=== PATIENT | male | born 1955 | race Caucasian/White ===

== ENCOUNTER 2023-11-25 09:36 | Observation (INO) ==
--- NOTE | 2023-10-01 14:50 | PAT Medication Instructions ---
Medication Instructions Date of Service October 01, 2023 Home Medications aspirin 81 mg capsule 81 mg PO Q2D krill oil 500 mg capsule 500 mg PO QAM multivitamin 1 tab PO QAM MEDICATION INSTRUCTIONS: ASK your prescriber and surgeon aspirin 81 mg capsule 81 mg PO Q2D STOP taking 2 weeks before surgery krill oil 500 mg capsule 500 mg PO QAM DO NOT take the morning of surgery multivitamin 1 tab PO QAM Other Notes Remember: NOTHING TO EAT OR DRINK AFTER MIDNIGHT If you have any questions please call us at [phone] or [phone] or [phone] or [phone]
--- NOTE | 2023-10-15 14:36 | Anesthesiology Consultation ---
Date of Service October 15, 2023 Assessment & Plan (1) Encounter for pre-operative examination: - awaiting surgeon ordered medical clearance-Dr. Jesús Yun. - Outpatient joint pathway: Per surgeon and patient, plan for outpatient joint program. Upon review of chart- patient is an acceptable candidate for Same Day Joint Program from anesthesia perspective pending perioperative course. Pending patient is motivated, has good support and surgeon's office completes Same Day Joint Program preop requirements- patient may proceed with outpatient TKA. Chart Review Chart Review: Pending: Refer to Additional Notes / Consult section and Patient seen in Pre Admission Testing Teaching & Discussion Pre-Anesthesia Teaching/Discussion Notes: Instructed NPO after midnight before surgery, except medications with 15 cc of water. Medication instructions provided according to the PAT guidelines. History Surgery Operation Date: 11/25/23 12:40 Proposed Procedures p OP: Left Total Knee Replacement - Ponce Vital MD Height/Weight Height: 6 ft 1 in Weight: 88.8 kg Allergies Allergy/AdvReac Type Severity Reaction Status Date / Time No Known Allergies Allergy Verified 10/01/23 10:29 Medications Home Medications Medication Instructions Recorded Confirmed Last Taken aspirin 81 mg capsule 81 mg PO Q2D 10/01/23 10/01/23 Unknown krill oil 500 mg capsule 500 mg PO QAM 10/01/23 10/01/23 Unknown multivitamin 1 tab PO QAM 10/01/23 10/01/23 Unknown Past Medical History Medical History (Updated 10/15/23 @ 14:32 by Brook Nina PA-C) Elevated PSA monitoring with urology - no biopsy has been done. Hx of colonic polyps Hx of renal calculi (2001) Osteoarthritis Patient denies h/o stroke, seizures, heart attack, heart failure, DM, HTN, blood clots/DVTs or blood transfusions. Exercise / Class Metabolic Activity II 4-5 Yardwork/Stairs/Walk up hill (denies chest discomfort or shortness of breath with one flight of stairs) Past Family History Family History Other No family history of adverse response to anesthesia Past Surgical History Surgical History (Updated 10/15/23 @ 14:33 by Brook Nina PA-C) History of arthroplasty of right knee (~2017) History of colonoscopy History of cystoscopy (2021) with stone basketing History of tooth extraction x1 tooth Past Anesthesia History No Hx of Anesthesia Complications and No Family Hx of Anesthesia Complications History of PONV No Hx of PONV and No Hx of Motion Sickness Social History Smoking Status: Never smoker Do You Dip or Chew Tobacco: No Hx Alcohol Use: Yes alcohol intake frequency: holidays/special occasions only Alcohol Intake Frequency Comment: "very rarely" Hx Substance Use: No substance use type: does not use Review of Systems Patient denies chest pain, shortness of breath, dyspnea on exertion, snoring, witnessed apneas, reflux, fever, chills, cough, wheezing, or palpitations. Physical Exam Vital Signs Vitals BP 134/75 P 56 TEMP 97.9 SP02 96% on RA RESP 17 Physical Patient resting comfortably in chair in no acute distress, alert and oriented, responding appropriately throughout visit Full cervical extension range of motion without pain TMD 3.5 finger breadths Mallampati Score 2 Dentition: intact, denies chipped or loose teeth, caps/crowns, implants or bridges Lungs: normal respiratory effort. Good air movement, clear throughout to au scultation, no adventitious breath sounds Cardiac: regular rate and rhythm, no murmurs noted Carotid arteries: negative bruit bilat Lab Results Anesthesia Preop Results Results Anesthesia Widget: WBC 5.66 K/ul (4.8-10.8) 10/15/23 Hgb 14.4 g/dl (14.0-18.0) 10/15/23 Hct 43.0 % (42.0-52.0) 10/15/23 Plt 217 K/uL (130-400) 10/15/23 Na 139 mmol/L (136-145) 10/15/23 K 4.7 mmol/L (3.5-5.1) 10/15/23 Cl 104 mmol/L (98-107) 10/15/23 CO2 32 mmol/L (21-32) 10/15/23 BUN 20 mg/dl (6-23) 10/15/23 Creat 1.04 mg/dl (0.6-1.4) 10/15/23 Glucose Level 89 mg/dl (70-99(Fasting)) 10/15/23 PT 10.3 Seconds (9.0-12.0) 10/15/23 PTT 28 Seconds (21-31) 10/15/23 INR 0.9 (0.9-1.1) 10/15/23 Urine Color Yellow 10/15/23 Urine Appearance Clear (Clear) 10/15/23 Urine pH 5.5 (4.5-7.5) 10/15/23 Urine Specific [place] 1.029 (1.000-1.030) 10/15/23 Urine Protein Negative (Negative) 10/15/23 Urine Glucose (UA) Negative (Negative) 10/15/23 Urine Ketones Negative (Negative) 10/15/23 Urine Blood Negative (Negative) 10/15/23 Urine Nitrite Negative (Negative) 10/15/23 Urine Bilirubin Negative (Negative) 10/15/23 Urine Urobilinogen Negative (Negative) 10/15/23 Urine Leukocyte Esterase Negative (Negative) 10/15/23 Blood Type O Negative 10/15/23 Antibody Screen NEGATIVE 10/15/23 Testing Electrocardiogram Date: 10/15/23 Sinus bradycardia, rate 59 bpm
--- NOTE | 2023-11-22 14:09 | History & Physical Report ---
Date of Service November 22, 2023 Assessment & Plan (1) Left knee DJD: Plan: Left total knee replacement with patient-specific implants most likely same-day surgery [facility] History of Present Illness Chief Complaint: Left knee pain Primary Care Provider: NO PCP Patient is a 68-year-old male with a longstanding history of bilateral knee osteoarthritis. He has a remote history of successful right total knee replacement. He now presents with greater than 3 years of left knee pain. The pain is associated with instability decreased range of motion and weakness. He has tried and failed multiple types of injections. He has radiographic evidence of tricompartmental degenerative arthritis and is admitted for elective knee replacement surgery Allergies Allergy/AdvReac Type Severity Reaction Status Date / Time No Known Allergies Allergy Verified 10/01/23 10:29 Home Medications Medication Instructions Recorded Confirmed Type aspirin 81 mg capsule 81 mg PO Q2D 10/01/23 10/01/23 History krill oil 500 mg capsule 500 mg PO QAM 10/01/23 10/01/23 History multivitamin 1 tab PO QAM 10/01/23 10/01/23 History Past Med/Surg History Problem List (Updated 11/22/23 @ 14:08 by Ponce Vital MD) Left knee DJD Medical History Elevated PSA monitoring with urology - no biopsy has been done. Osteoarthritis Hx of renal calculi (2001) Hx of colonic polyps Surgical History History of cystoscopy (2021) with stone basketing History of colonoscopy History of tooth extraction x1 tooth History of arthroplasty of right knee (~2017) Family History Other No family history of adverse response to anesthesia Social History Smoking Status: Never smoker Second Hand Exposure: No; Do You Dip or Chew Tobacco: No; Tobacco Cessation Education Requested by Patient: No Hx Alcohol Use: Yes Hx Substance Use: No Preferred Language: Citizen Of [place] Communication Ability: Effective Quantometer Operator Required: No Beliefs That Will Affect Care: None Current Living Situation: Spouse Other Information That Helps Us Care for You: No Feels Safe at Home: Yes Safety Concerns: Feels Safe At This Time Assistive Devices: Glasses Review of Systems Review of Systems: Knee pain and instability Physical Exam Physical Exam: Weight 95 kg BMI 28 General: Well-nourished well-developed male who appears his stated age HEENT: NCAT, EOMI, PERRLA Neck: Supple without bruits Heart: Regular rate and rhythm no murmurs Lungs: Breath sounds clear and present in all fernandez Abdomen: Soft nontender bowel sounds Extremities: The right knee shows varus deformity passive range of motion is 0 to 115 degrees flexion there is positive effusion pain on range of motion and 2 to 3 mm of medial laxity Neurological and vascular: Intact Results & Data Results & Data Vital Signs (Past 12 Hours) Blood pressure 136/84 Pulse 63
[~2023-11-25 09:36] MED LIST: DEXAMETHASONE SOD INJ 4 MG/ML VIAL ONE; LIDOCAINE 2% 2 ML VIAL/AMP(20MG/ML) INFIL ONE; MIDAZOLAM HCL 1 MG/ML 2ML VIAL ONE; ONDANSETRON INJ 2 MG/ML 2 ML VIAL ONE; PROPOFOL IV EMULSION 10 MG/ML 20 ML VIAL IV ONE; ROPIVACAINE 0.5% 5 MG/ML 30 ML VIAL ONE; fentaNYL citrate PF 100 MCG/2 ML VIAL ONE
--- NOTE | 2023-11-25 10:20 | History & Physical Bridge Note ---
Date of Service November 25, 2023 History & Physical Bridge Note I have examined the patient, reviewed the History & Physical and in the interval since the performance of the History & Physical I have noted the following changes of clinical significance: no changes noted
[2023-11-25] MEDS: LR 60ML/HR IV SCH (10:27)
[2023-11-25] MEDS: LR 500ML BOLUS, THEN 15ML/HR IV SCH (10:37)
[2023-11-25] MEDS: ACETAMINOPHEN 500 MG TAB PO SCH (10:40)
[2023-11-25] MEDS: CeleBREX 200 MG CAP PO SCH ×2 (10:41→21:13)
[2023-11-25] MEDS: FAMOTIDINE 20 MG TAB PO SCH (10:41)
[2023-11-25] MEDS: GABAPENTIN 300 MG CAP PO SCH (10:41)
[2023-11-25] MEDS: METOCLOPRAMIDE HCL 10 MG TABLET PO SCH (10:41)
[2023-11-25] MEDS: traMADol HCL 50 MG TABLET PO SCH (10:41)
[2023-11-25] MEDS: dexAMETHasone**PF** 10 MG/ML VIAL IV SCH (10:43)
[2023-11-25] MEDS ORDERED: fentaNYL citrate PF 100 MCG/2 ML VIAL IV PRN (11:53)
[2023-11-25] MEDS ORDERED: ATROPINE SULFATE 0.1 MG/ML 10ML SYR IV PRN (11:53)
[2023-11-25] MEDS ORDERED: ONDANSETRON INJ 2 MG/ML 2 ML VIAL IV PRN ×2 (11:53→18:56)
[2023-11-25] MEDS ORDERED: ePHEDrine sulfate 50 MG/ML AMP IV PRN (11:53)
[2023-11-25] MEDS ORDERED: KETOROLAC 30 MG/ML VIAL IV PRN (11:53)
[2023-11-25] MEDS: TRANEXAMIC ACID 1,000 MG **IV Pre-op IV SCH (12:36)
[2023-11-25] MEDS: ceFAZolin 2000MG 2,000 MG/15 ML SYR IV SCH (13:00)
[2023-11-25] MEDS: ORTHO JOINT ANESTHETIC ONE (13:36)
[2023-11-25] MEDS: TRANEXAMIC ACID 1,000 MG **IV Intra-op IV SCH (13:57)
[2023-11-25] MEDS ORDERED: ACETAMINOPHEN 500 MG TAB PO PRN (14:02)
--- NOTE | 2023-11-25 14:02 | Post Operative Brief Note ---
Immediate Post Op Note Date of Surgery November 25, 2023 Pre & Post Diagnosis Operation Date: 11/25/23 11:30 Pre-Op Diagnosis: Left Knee Degenerative Joint Disease Post-Op Diagnosis: Left Knee Degenerative Joint Disease I identified the patient and participated in the time-out.: Yes Procedure Operation Date: 11/25/23 11:30 Actual Procedures p Left Total Knee Replacement(Left) - Ponce Vital MD Surgeon Ponce Vital MD Heater Installer Miko Hood PA-C Estimated Blood Loss 150 Findings Consistent with Post-Op Diagnosis Drains Hemovac Drain
[2023-11-25] MEDS: ROPIV 0.5% 246mg, Ketorolac 30mg, EPINEPHrine 0.5mg in NSS INFIL SCH (14:04)
--- NOTE | 2023-11-25 14:18 | Operative Report ---
Post Operative Report Pre & Post Diagnosis Operation Date: 11/25/23 11:30 Pre-Op Diagnosis: Left Knee Degenerative Joint Disease Post-Op Diagnosis: Left Knee Degenerative Joint Disease I identified the patient and participated in the time-out.: Yes Procedure Operation Date: 11/25/23 11:30 Actual Procedures p Left Total Knee Replacement(Left) - Ponce Vital MD Surgeon Ponce Vital MD Machinist Supervisor Miko Hood PA-C Estimated Blood Loss 150 Findings Consistent with Post-Op Diagnosis severe tricompartmental degenerative changes Specimens bone and cartilage fragments Indications components used: [employer] journey 2 posterior stabilized knee system: Femur size 8 with Oxinium coating, tibia size 7 x 10, patella size 38 oval Description of Procedure following satisfactory spinal anesthesia the patient was supine on the operating room table. The left lower extremity was prepared with ChloraPrep and draped sterilely. A surgical timeout was performed. A midline incision was made with a median parapatellar arthrotomy. The knee showed the changes noted above. Because of the large bone size and the large patella attention was first turned to the patella. The patella was freehand cut and sized for a 38 button. This relaxed the extensor mechanism and enhanced exposure to the lateral side of the knee. The cruciate ligaments were excised. The patient matched femoral block was applied. Femoral distal rotation and resection resetting completed. The 4-in-1 block was used to finish preparation of the femur. The tibial meniscal fragments were excised. The patient matched tibial block was applied. Tibial resection was completed. Soft tissue balancing was completed in flexion and extension. A trial reduction with the above-mentioned components was performed. This showed good tensioning and stability on the collateral ligaments and a stable range of motion from full extension to more than 115 degrees of flexion. The patella tracked well throughout. The trial components were removed. The capsule was prepared with the orthopedic cocktail. After irrigation and drying the components were cemented using Peña Z be cement cementing the tibia first, femur second, and patella third. When the cemented hardened the knee was checked and showed stability and tracking. The wound was irrigated with 500 cc of experience irrigation. Hemovac drain was placed. The capsulotomy was closed with interrupted [id number] sutures of 1 Vicryl and a running suture of #1 strata fix. Following irrigation the subcutaneous tissues were closed with 0 strata fix deep 2 oh strata fix more superficial and a running subcuticular stitch of 3 oh strata fix in the skin. Dermabond Prineo and a negative pressure wound dressing were applied. The patient was returned to his bed having tolerated the procedure in good condition Note: Miko POWELL was present and assisted throughout due to the complicated nature of this case. He help with preparation and set up, he first assisted throughout. He assisted with hemostasis and exposure throughout the procedure. He also closed the capsular subcutaneous and skin layers and applied the postop dressing. I attest to the content of the Intraoperative Record and any orders documented therein. Any exceptions are noted below.
[2023-11-25] MEDS ORDERED: KETOROLAC 30 MG/ML VIAL ONE (14:20)
--- NOTE | 2023-11-25 15:55 | Anesthesiology Progress Note ---
Date of Service November 25, 2023 Anesthesia Post Procedure Vital Signs Vital Signs: Temp Pulse Pulse Resp BP Pulse Ox O2 Del Method 11/25/23 15:30 36.3 C L 57 L 17 127/70 95 Room Air 11/25/23 15:20 58 L 20 128/79 95 Room Air 11/25/23 15:10 72 14 109/92 95 Room Air 11/25/23 15:00 67 16 126/67 96 Room Air 11/25/23 14:50 68 20 111/63 98 Oxymask 11/25/23 14:41 36.0 C L 61 14 111/60 97 Oxymask 11/25/23 10:09 36.4 C L 61 20 161/85 H 98 Room Air O2 Flow Rate 11/25/23 15:30 11/25/23 15:20 11/25/23 15:10 11/25/23 15:00 11/25/23 14:50 6 11/25/23 14:41 6 11/25/23 10:09 Transfer of Care Handoff Completed per policy Notes Mental Status: alert / awake / arousable Patient Amnestic to Procedure: Yes Nausea / Vomiting: adequately controlled Pain: adequately controlled Airway Patency, RR, SpO2: stable & adequate BP & HR: stable & adequate Hydration State: stable & adequate Anesthetic Complications: no major complications apparent
[2023-11-25] MEDS: ceFAZolin 2000MG 2,000 MG/15 ML SYR IV ONE (18:20)
[2023-11-25] MEDS ORDERED: diphenhydrAMINE 50 MG/ML VIAL IV PRN (18:56)
[2023-11-25] MEDS ORDERED: NALOXONE HCL 0.4 MG/1 ML VIAL/CARP IV PRN (18:56)
[2023-11-25] MEDS ORDERED: bisacodyL 10 MG SUPP PR PRN (18:56)
[2023-11-25] MEDS ORDERED: MAGNESIUM HYDROXIDE SUSP 30 ML UDC PO PRN (18:56)
[2023-11-25] MEDS ORDERED: HYDROmorphone INJ 0.5 MG/0.5 ML SYR IV PRN (18:56)
[2023-11-25 21:12] VITALS: RESP 16
[2023-11-25] MEDS: ASPIRIN 81 MG ECTAB PO SCH (21:13)
[2023-11-25] MEDS: DOCUSATE SODIUM 100 MG CAP PO SCH (21:18)
[2023-11-25] MEDS: traMADol HCL 50 MG TABLET PO PRN (21:18)
[2023-11-25] MEDS: SENNA 8.6 MG TAB PO SCH (21:18)
[2023-11-25] MEDS: SODIUM CHLORIDE 0.9% 1,000 ML IV SCH (21:19)
[2023-11-26] MEDS: ceFAZolin 2000MG 2,000 MG/15 ML SYR IV SCH (02:06)
[2023-11-26 07:26] VITALS: BP 120/57; PULSE 59; TEMP 97.7; O2SAT 98
--- NOTE | 2023-11-26 07:46 | Orthopedic Progress Note ---
Date of Service November 26, 2023 Assessment & Plan (1) Left knee DJD: Plan: Postop day 1 status post left total knee arthroplasty. PT/OT protocols. Weightbearing as tolerated. DVT prophylaxis-aspirin p.o. twice daily, SCDs pain management as written. Labs pending DC planning-patient is planning for home health services for PT/OT as well as dressing change and drain removal. Patient will follow-up in 2 weeks in our office for his first postoperative appointment. Admission and Anticipated Discharge Date Admission Date: November 25, 2023 Subjective postop day 1 patient sitting up in bed awake and alert. No complaints this morning. Pain is controlled. He had no problems overnight. Patient was initially used to be outpatient procedure however he continues to have a dense nerve block postoperatively and was unable to participate in his physical therapy yesterday evening. This morning, the patient states that normal motor function and sensation is back and he ambulated the hallway last night. Physical Exam Physical Exam: Dressings are clean, dry, and intact. Calves are soft nontender. Neurovascular is intact. Toes are mobile. He has good dorsiflexion and plantarflexion. Hemovac drainage was 150 cc from the previous shift. Results & Data Vital Signs (Past 12 Hours) Vital Signs Temp Pulse Pulse Resp BP BP Pulse Ox 11/26/23 07:25 36.5 C 59 L 16 120/57 L 98 11/26/23 04:20 36.6 C 56 L 16 132/64 97 11/25/23 23:51 36.6 C 69 16 114/65 97 11/25/23 20:40 36.4 C L 67 16 113/63 97 O2 Del Method 11/26/23 07:25 Room Air 11/26/23 04:20 Room Air 11/25/23 23:51 Room Air 11/25/23 20:40 Room Air
[2023-11-26 07:58] LABS: Hematocrit (blood only) 33.9 % (42.0-52.0); Hemoglobin 11.6 g/dl (14.0-18.0); Mean Corpuscular Hemoglobin 30.1 pg (25.0-34.0); Mean Corpuscular Hgb Conc 34.2 g/dL (32.0-36.0); Mean Corpuscular Volume 87.8 fL (80.0-100.0); Mean Platelet Volume 9.4 fL (9.4-12.4); Platelet Count 197 K/uL (130-400); RDW Coefficient of Variation 12.7 % (11.5-14.5); RDW Standard Deviation 40.7 fL (36.4-46.3); Red Blood Count 3.86 M/uL (4.70-6.10); White Blood Count 11.25 K/ul (4.8-10.8)
[2023-11-26] MEDS: MULTIVITAMIN TAB PO SCH (07:59)
[2023-11-26 08:12] LABS: BUN Creatinine Ratio 18.8 (10-20); Calcium 8.2 mg/dl (8.6-10.3); Creatinine Clr Calc Pharmacy 80.9 ml/min; Est GFR (African American) 92.4 ml/min; Est GFR (Non-African American) 79.8 ml/min; Potassium 4.4 mmol/L (3.5-5.1)
--- NOTE | 2023-11-29 07:32 | Discharge Summary ---
Date of Service November 29, 2023 Admission HPI Per Admitting Provider Patient is a 68-year-old male with a longstanding history of bilateral knee osteoarthritis. He has a remote history of successful right total knee replacement. He now presents with greater than 3 years of left knee pain. The pain is associated with instability decreased range of motion and weakness. He has tried and failed multiple types of injections. He has radiographic evidence of tricompartmental degenerative arthritis and is admitted for elective knee replacement surgery Admission Exam Per Admitting Provider Physical Exam: Weight 95 kg BMI 28 General: Well-nourished well-developed male who appears his stated age HEENT: NCAT, EOMI, PERRLA Neck: Supple without bruits Heart: Regular rate and rhythm no murmurs Lungs: Breath sounds clear and present in all fernandez Abdomen: Soft nontender bowel sounds Extremities: The right knee shows varus deformity passive range of motion is 0 to 115 degrees flexion there is positive effusion pain on range of motion and 2 to 3 mm of medial laxity Neurological and vascular: Intact Principal Diagnosis Right Knee Osteoarthritis Discharge Data Allergies Allergy/AdvReac Type Severity Reaction Status Date / Time No Known Allergies Allergy Verified 11/25/23 10:07 Procedures Performed Operation Date: 11/25/23 11:30 Actual Procedures p Left Total Knee Replacement(Left) - Ponce Vital MD Ordered Studies 11/25/23 05:00 US - OR guided needle placemen Routine Hospital Course (1) Left knee DJD: Patient: PHIL MIGUEL Admit Date: 11/25/23 MR#: [id number] Att Phy: Ponce Vital MD Acct ID: [id number] Yamilex Phy: PCP,NO Date: 1955 Fam Phy: Age: 68 Location: 3E Sex: M Room/Bed: E305-1 cc: ~ *NOTICE TO RECEIVING LIBERTARIAN/AGENCY This information is strictly Confidential and protected under [place] law. [place] law prohibits you from making any further disclosure of this information unless further disclosure is expressly permitted by the written consent of the person to whom it pertains or is authorized by law. A general authorization for the release of medical or other information is not sufficient for this purpose. Hospital accepts no responsibility if the information is made available to any other person, INCLUDING THE PATIENT. Date of Service November 26, 2023 Assessment & Plan (1) Left knee DJD: Plan: Postop day 1 status post left total knee arthroplasty. PT/OT protocols. Weightbearing as tolerated. DVT prophylaxis-aspirin p.o. twice daily, SCDs pain management as written. Labs pending DC planning-patient is planning for home health services for PT/OT as well as dressing change and drain removal. Patient will follow-up in 2 weeks in our office for his first postoperative appointment. Admission and Anticipated Discharge Date Admission Date: November 25, 2023 Subjective postop day 1 patient sitting up in bed awake and alert. No complaints this morning. Pain is controlled. He had no problems overnight. Patient was initially used to be outpatient procedure however he continues to have a dense nerve block po stoperatively and was unable to participate in his physical therapy yesterday evening. This morning, the patient states that normal motor function and sensation is back and he ambulated the hallway last night. Physical Exam Physical Exam: Dressings are clean, dry, and intact. Calves are soft nontender. Neurovascular is intact. Toes are mobile. He has good dorsiflexion and plantarflexion. Hemovac drainage was 150 cc from the previous shift. Results & Data Vital Signs (Past 12 Hours) Vital Signs Temp Pulse Pulse Resp BP BP Pulse Ox 11/26/23 07:25 36.5 C 59 L 16 120/57 L 98 11/26/23 04:20 36.6 C 56 L 16 132/64 97 11/25/23 23:51 36.6 C 69 16 114/65 97 11/25/23 20:40 36.4 C L 67 16 113/63 97 O2 Del Method 11/26/23 07:25 Room Air 11/26/23 04:20 Room Air 11/25/23 23:51 Room Air 11/25/23 20:40 Room Air Signed By: <Electronically signed by Miko Hodo PA-C> 11/26/23 0747 Created: 11/26/23 0745 Total Time Total Time Spent Total Time Spent (In Minutes): 5 Discharge Plan Discharge Items Patient Disposition: Home - Home Health Services Reason For Visit: Left Knee Osteoarthritis Discharge Diagnosis: Left Knee Osteoarthritis Activity: Per Instructions section Weightbearing: Full weightbearing Non-emergency contact: Surgeon Call non-emergency contact if: you have any medication questions, your pain is not controlled, your temperature is above 101.5, your wound has increased redness and your wound has increased drainage Follow-up/Referrals: [facility] [Outside] (as per surgeon's office) Ponce Vital MD [Surgeon] - (Follow up with Dr. Vital or his PA in 2 weeks from the day of surgery for your first post operative visit. ) PCP,NO [Primary Care Provider] - Diet: Regular Addtl Attending Provider Instructions: DR. CHAPA POST-OP INSTRUCTIONS FOR TOTAL KNEE ARTHROPLASTY PLEASE REVIEW PRIOR TO SURGERY Day of Surgery You will be admitted and meet the nursing and anesthesia team. Dr. Vital will see you and sign your operative side. Anesthesia will place your spinal anesthetic in the pre-op area Your surgery will be performed and last approximately 1 2 hours. Upon waking, you will notice a dressing and ice pack on your knee. If you purchased the [employer] Cold Compression unit, this will be applied to your knee. You will remain in the recovery room for 1 2 hours, then be transferred to your room in the ambulatory surgical area if you are to go home the same day of your surgery or on the orthopedic floor if you will be staying overnight. Most of Dr. Chapa total knee patients go home the same day as surgery. This depends on how well you feel. Patients generally seem to feel better in their own home environment, and the risk of exposure to bad bugs is much lower. (Your post-operative medications will be sent to your pharmacy approximately 1-2 days prior to your procedure) Day 1 post-op (if you have an overnight stay in the hospital) You will have bloodwork drawn in the morning Physical therapy will evaluate you in the morning. You will start getting out of bed and ambulating with a walker. They will instruct you on knee motion exercises. Use your cold packs or your cold compression unit as instructed. This will decrease swelling and minimize pain. industrial services worker will discuss your discharge plan. Discharge will generally be around 11am Day 1 post-op (all patients) You will be taking Aspirin 81mg twice for 4 weeks to decrease the risk of a blood clot. You will most likely have a drain and HERNANDO (superficial wound VAC) dressing post-operatively covered by an leila wrap dressing. (home nurse will remove lelia wrap/drain) This will keep your incision dry as well as aid in early healing. The batteries will wear out and the VAC will lose suction around day 6 7 post-op. At that time, you may turn off the device and disconnect it from your dressing. You may remove your dressing 10 days after surgery if it becomes bothersome and irritating to your skin. If the dressing appears to be saturated, please call our office. Day 2-14 post-op You will have a home nurse visit to assess your status and rem ove your leila wrap/drain on post-op day 2. You are permitted to shower immediately with the VAC. Do not soak the dressing let the shower flow on your opposite side, and pat dry the plastic. Once the dressing has been removed, you may shower normally with the incision exposed. Do not rub the area simply let soapy water run over the incision and lightly pat dry. Therapy will begin on post-op day 3. Your therapy prescription will be sent to your home therapy company/therapist You should continue doing your home exercises Week 2 post-op and forward You will have your first post-op appointment 2 weeks after surgery which should have been scheduled for you by our office. This appointment will be to check your incision, progression of therapy and pain control. You will continue to use a cane or a walker until you feel safe enough to stop using it. You will have a 6-week post-op appointment which should have been scheduled for you by our office. X-rays will be taken to evaluate the prosthesis. You will continue to advance range of motion. By 3 to 4 months after surgery, you should have almost full range of motion and may resume most activities. You may have some pain around the knee with certain activities this is completely normal. You will be scheduled for a 1-year post-op appointment to assess your outcome (sooner if Dr. Vital feels it is necessary). Pain: The immediate post-op period after knee replacement surgery can be justyn nful. You should take your pain medicine as you need it, especially prior to physical therapy and bedtime. Your pain WILL get better, and you may transition to a milder pain medicine (with less side effects, such as Tylenol) as soon as possible. It is common to have pain at night that interferes with sleep this can last for several months. Pain medicines can cause nausea and constipation do not take more than you need. You may be prescribed one or more of the following medications: 1. Celebrex this controls inflammation and makes pain medications more effective it will be taken once or twice a day 2. Tylenol a pain medicine that can help to decrease your pain you should take 1000mg three times a day 3. Tramadol a pain medicine that can be taken every 4-6 hours (instead of Oxycodone) as needed to control your pain 4. Oxycodone a VERY strong pain medicine that can be taken every 4- 6 hours (instead of Tramadol) as needed to control your pain. This medication has the most side effects. 5. Aspirin 81mg blood thinning medication to help minimize the risk of development of blood clots unfortunate side effects of pain medicine include nausea and constipation if you experience these issues or have any questions about your post-op medications, call [facility] at for assistance/advice on how to manage these issues Physical therapy is a VERY important part of knee replacement surgery. The office will arrange for a therapist to come to your home to instruct you on exercises. It is very important to practice on your own (or with the assistance of a family member). While in the hospital, you will be shown a series of home exercises you should perform these exercises 3 4 times daily in addition to physical therapy. After the completion of home therapy (approx. 2 weeks), most therapy exercises can be done on your own. You should get up to walk several times a day. Try not to stand longer than 1 hour at a time to minimize swelling. If you develop swelling, you need to elevate your legs/feet at or above the level of your heart. You may progress from walker to cane to ambulating independently as you feel comfortable. Unless it is an emergency, YOU ARE NOT PERMITTED TO HAVE ANY DENTAL CLEANING/WORK UNTIL 3 MONTHS AFTER SURGERY. You will be required to take an antibiotic prior to any dental cleaning or dental work in order to prevent your joint prothesis from getting infected. This medication is a one time per visit dose to be taken one hour prior to appointment. You may call our office for this prescription or your dentist may be willing to prescribe the medication. Remember to contact [facility] at if you develop any signs of infection which include increased swelling, pain, redness, drainage from incision, warmth, fever, chills or severe pain unrelieved by pain medication. If you develop any chest pain or shortness of breath, you should proceed immediately to the closest Emergency Room. It is normal to run a low-grade fever after surgery. If your fever is consistent at 101.0 or higher, you will need to contact the office. Stand-Alone Forms: Anesthesia/Sedation, Adult, [facility], Pain - Opioid Pain Management Medications and DC Order Prescriptions: Continued multivitamin Tablet 1 tab PO QAM krill oil 500 mg Capsule 500 mg PO QAM Held aspirin 81 mg Capsule 81 mg PO Q2D Hold Instructions: You will be prescribed a different dose of Aspirin for 4 weeks. This will be your "blood thinner". After 4 weeks, you may resume your regular dosage of Aspirin Krames/Other Patient Handouts: Preventing Deep Vein Thrombosis Admission Data Admit Date/Time: 11/25/23 16:45 Attending Provider: Ponce Vital Admit Provider: Ponce Vital Primary Care Provider: PCP,NO Other Interventions: Discharge Summary Assessment (RN) Last Done: 11/26/23 10:05
== END 2023-11-26 13:16 | disposition home health service (06) ==
LOC: 3E 09:36 → ASU 09:36
DX: M17.12 Unilateral primary osteoarthritis, left knee; Z79.899 Other long term (current) drug therapy; Z87.442 Personal history of urinary calculi; Z79.82 Long term (current) use of aspirin; M65.9 Synovitis and tenosynovitis, unspecified; R97.20 Elevated prostate specific antigen [PSA]; Z96.651 Presence of right artificial knee joint; M25.762 Osteophyte, left knee